=== PATIENT | female | born 1995 | race Caucasian/White ===

== ENCOUNTER 2020-04-27 16:27 | Day surgery (SDC) | payer BC ==
[~2020-04-27] VITALS: Ht 157.5 cm; Wt 57.9 kg
--- NOTE | 2020-04-27 16:56 | NUR ---
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
[2020-04-27] MEDS ORDERED: SODIUM CHLORIDE FLUSH 10ML SYR IVF ONE (17:30)
[2020-04-27] MEDS ORDERED: ONDANSETRON 2MG/ML, 2ML IVPush ONE (17:30)
[2020-04-27] MEDS ORDERED: MORPHINE SULFATE 4 MG/ML, 1ML IVPush PRN ×2 (17:30→23:30)
[2020-04-27] MEDS ORDERED: MORPHINE SULFATE 4 MG/ML, 1ML ONE (17:59)
[2020-04-27] MEDS ORDERED: ONDANSETRON 2MG/ML, 2ML ONE ×2 (17:59→21:01)
[2020-04-27 18:20] LABS: BASOPHILS % (AUTO) 0 % (0-1); EOSINOPHILS % (AUTO) 0 % (1-7); LYMPHOCYTES % (AUTO) 10 % (22-44); MD NO; MEAN CORPUSCULAR HEMOGLOBIN 30.8 pg (27.0-34.8); MEAN CORPUSCULAR HGB CONC 35.1 g/dL (32.4-35.8); MEAN PLATELET VOLUME 9.9 fL (7.4-10.4); MONOCYTES % (AUTO) 6 % (2-9); NEUTROPHILS % (AUTO) 84 % (42-75); PLATELET COUNT 212 x10^3/uL (130-400); RED BLOOD COUNT 4.64 x10^6/uL (3.82-5.3); RED CELL DISTRIBUTION WIDTH 12.2 % (9.6-15.2)
[2020-04-27] MEDS ORDERED: SODIUM CHLORIDE 0.9% 1,000ML IVBOLUS ONE (18:30)
[2020-04-27 18:32] LABS: ALBUMIN 3.9 g/dL (3.4-5.0); ANION GAP 11 mmol/L (5-15); CALCIUM 8.8 mg/dL (8.5-10.1); CHLORIDE 106 mmol/L (98-107); CREATININE 0.69 mg/dL (0.55-1.02)
[2020-04-27] MEDS: POTASSIUM CHLORIDE 20 MEQ in SODIUM CHLORIDE 0.9% 250 ML IV ONE ×2 (19:00→21:45)
[2020-04-27] MEDS ORDERED: OMNIPAQUE 350 MG/ML, 100ML BOTTLE ONE (19:00)
[2020-04-27] MEDS ORDERED: CEFOTETAN PMX 2GM/50ML 50 ML IVPB ONE (19:30)
--- NOTE | 2020-04-27 19:33 | NUR ---
Assumed pt care. Pt A&O, mom at bedside. VSS. Pt denies needs at this time. Will monitor.
[2020-04-27] MEDS ORDERED: EPINEPHRINE 1 MG/ML, 1ML ONE (19:49)
[2020-04-27] MEDS ORDERED: BUPIVACAINE/PF 0.5% ONE (19:49)
[2020-04-27 20:04] LABS: MICROSCOPIC NOT IND
--- NOTE | 2020-04-27 20:15 | NUR ---
Rapd covid swab sent, UA sent, abx infusing, Report to OR called. Pt waiting on OR. Pt denies needs at this time. Will monitor.
--- NOTE | 2020-04-27 20:26 | NUR ---
pt to OR with all belongings.
[2020-04-27] MEDS ORDERED: MIDAZOLAM 1 MG/ML, 2ML ONE (20:28)
[2020-04-27] MEDS ORDERED: FENTANYL PF 250 MCG/5ML ONE (20:28)
[2020-04-27] MEDS ORDERED: HALOPERIDOL 5 MG/ML IV PRN (21:00)
[2020-04-27] MEDS ORDERED: FENTANYL PF 100 MCG/2ML IV PRN (21:00)
[2020-04-27] MEDS ORDERED: HYDROmorphone 1 MG/ML, 1ML INJ IVPush PRN (21:00)
[2020-04-27] MEDS ORDERED: morphine SULFATE 10 MG/ML, 1ML IVPush PRN (21:00)
[2020-04-27] MEDS ORDERED: MEPERIDINE/PF 25MG/0.5ML IVPush PRN (21:00)
[2020-04-27] MEDS ORDERED: OXYcodone 5 MG/5 ML ORAL.SOL UDC PO PRN (21:00)
[2020-04-27] MEDS ORDERED: ACETAMINOPHEN 325 MG TABLET PO PRN (21:00)
[2020-04-27] MEDS ORDERED: PROMETHAZINE 25 MG/ML, 1ML IVPush PRN (21:00)
[2020-04-27] MEDS ORDERED: PROPOFOL 10 MG/ML, 20ML ONE (21:01)
[2020-04-27] MEDS ORDERED: GLYCOPYRROLATE 0.2MG/1ML, 5ML ONE (21:01)
[2020-04-27] MEDS ORDERED: SUCCINYLCHOLINE 20 MG/ML, 10ML ONE (21:01)
[2020-04-27] MEDS ORDERED: KETOROLAC 30 MG/1 ML ONE (21:01)
[2020-04-27] MEDS ORDERED: ROCURONIUM 10MG/ML,5ML ONE (21:01)
[2020-04-27] MEDS ORDERED: NEOSTIGMINE 1 MG/ML, 10ML ONE (21:01)
[2020-04-27] MEDS ORDERED: DEXAMETHASONE 4 MG/ML, 1ML ONE (21:01)
[2020-04-27] MEDS ORDERED: BUPIVACAINE/PF 0.5% INFIL ONE (21:28)
[2020-04-27] MEDS ORDERED: MEPERIDINE/PF 25MG/ML,1ML ONE (21:44)
[2020-04-27] MEDS ORDERED: ACETAMINOPHEN 650 MG/20.3 ML UDC ONE (22:01)
[2020-04-27] MEDS ORDERED: OXYcodone 5 MG/5 ML ORAL.SOL UDC ONE (22:02)
[2020-04-27] MEDS ORDERED: ONDANSETRON 2MG/ML, 2ML IVPush PRN (23:30)
[2020-04-27] MEDS ORDERED: HYDROcodone/APAP 5/325 TABLET PO PRN (23:30)
[2020-04-27] MEDS ORDERED: KETOROLAC 30 MG/1 ML IV PRN (23:30)
[2020-04-28 00:06] VITALS: BP 96/58
[2020-04-28 00:29] VITALS: BP 110/67
[2020-04-28 04:06] VITALS: BP 93/55
[2020-04-28 08:01] VITALS: BP 107/66
== END 2020-04-28 09:01 | disposition home or self-care (01) ==
LOC: ED 18:24 → UNDOADMIN 20:12 → EDIP 20:12 → OUT 21:00 → 4NE 22:49 → EDIP 22:49 → UNDODISIN 04-28 09:01 → OUT 04-28 09:01
PROVIDERS: ATTEND Emergency Medicine
DX: K35.890 Other acute appendicitis without perforation or gangrene (principal); F12.90 Cannabis use, unspecified, uncomplicated; Z88.2 Allergy status to sulfonamides; Z88.1 Allergy status to other antibiotic agents; Z72.89 Other problems related to lifestyle
CPT/HCPCS: 36415; 44970; 74177; 76830; 80048; 81003; 82040; 84703; 85025; 87635; 88304; 96361; 96374; 96375; 99285; J0171; J2175; J2250; J2270; J2405; J3010; J3480; J7030; J7050; Q9967; G0378; J1100; J1885; J2704; J2710; J0330